=== PATIENT | male | born 1955 | race Caucasian/White ===

== ENCOUNTER 2019-10-27 10:38 | Emergency (ER) | payer OTHER ==
[2019-10-27 11:09] LABS: Absolute Lymphocytes (CBC) 0.8 K/uL (0.7-4.9); Basophils % 0.9 % (0-1.3); Hematocrit 58.5 % (39.6-49.0); Lymphocytes % 5.2 % (15.3-44.8); MPV 9.4 fL (7.6-11.3); RBC Red Blood Cell Count 7.34 M/uL (4.33-5.43)
[2019-10-27] MEDS ORDERED: NA CHLORIDE 0.9% 1,000 ML ONE (11:12)
[2019-10-27] MEDS ORDERED: ONDANSETRON 4 MG/2 ML VIAL ONE (11:12)
[2019-10-27] MEDS ORDERED: MECLIZINE HCL 12.5 MG TAB ONE (11:12)
--- NOTE | 2019-10-27 11:12 | RAD REPORT ---
EXAM DESCRIPTION: CT - Head Brain Wo Cont - 10/27/2019 11:01 am CLINICAL HISTORY: DIZZINESS Headache, drowsiness COMPARISON: No comparisons TECHNIQUE: All CT scans are performed using dose optimization technique as appropriate and may inclu de automated exposure control or mA/KV adjustment according to patient size. FINDINGS: No intracranial hemorrhage, hydrocephalus or extra-axial fluid collection.No areas of brai n edema or evidence of midline shift. Opacification of the right maxillary antrum is seen most compatible with chronic sinusitis. Remainder the paranasal sinuses and mastoids are clear. The calvarium is intact. IMPRESSION: No acute intracranial abnormality.
--- NOTE | 2019-10-27 11:20 | RAD REPORT ---
EXAM DESCRIPTION: RAD - Chest Single View - 10/27/2019 11:11 am CLINICAL HISTORY: Dizziness Chest pain. COMPARISON: No comparisons FINDINGS: Portable technique limits examination quality. The lungs are grossly clear. The heart is normal in size. No displaced fractures. IMPRESSION: No acute intrathoracic process suspected.
[2019-10-27 11:28] LABS: ALT/SGPT 36 U/L (12-78); AST/SGOT 23 U/L (15-37); Albumin 3.5 g/dL (3.4-5.0); Alkaline Phosphatase 96 U/L (45-117); BUN Blood Urea Nitrogen 9 mg/dL (7-18); Bicarbonate 27 mmol/L (21-32); Bilirubin Direct 0.5 mg/dL (0-0.2); Bilirubin Total 2.2 mg/dL (0.2-1.0); Glucose Level 132 mg/dL (74-106); Magnesium 1.8 mg/dL (1.8-2.4); NT PRO-BNP 80 pg/mL (<125); Potassium 3.4 mmol/L (3.5-5.1); Protein, Total 7.6 g/dL (6.4-8.2); Sodium Level 136 mmol/L (136-145); Troponin (Emerg Dept Use Only) < 0.02 ng/mL (0.0-0.045)
[2019-10-27 11:54] LABS: Protime INR 1.18
[2019-10-27 12:15] LABS: Blood Morphology Comment NOT SEEN (NOT SEEN); Urine White Blood Cell Casts OK
[2019-10-27 12:16] LABS: Platelet Estimate ADEQ
--- NOTE | 2019-10-27 12:27 | EDPHYS ---
Physician Documentation [facility] Name: Greg Villeda Age: 64 yrs Sex: Male : 1955 Arrival Date: 10/27/2019 Time: 10:35 Bed 6 Private MD: ED Physician Isaak Ryan HPI: 10/27 10:59 This 64 yrs old Male presents to ER via EMS with complaints of Dizziness. pm1 10:59 The patient presents with dizziness. Onset: The symptoms/episode began/occurred 2 pm1 day(s) ago. Context: just prior to the episode the patient experienced no apparent symptoms. Modifying factors: the symptoms are aggravated by movement of head, changing position. Associated signs and symptoms: Pertinent positives: nausea, sore throat, Pertinent negatives: abdominal pain, blurred vision, chest pain, combativeness, numbness, shortness of breath, tingling. Severity of symptoms: Pain is currently a 0 / 10. Patient's baseline: Neuro: alert and fully oriented, Motor: no deficits, Ambulation: walks without assistance, Speech: normal. The patient has not experienced similar symptoms in the past. When patient moves his head or changes position, he has a sensation of dizziness that he can describe as feeling sea sick. Historical: - Allergies: 10:41 No Known Allergies; bp - Immunization history:: Adult Immunizations Last tetanus immunization: up to date. - Coronavirus screen:: The patient has NOT traveled to [place], [place], or [place] in the past 14 days. The patient has NOT had contact with known/suspected case of Coronavirus? Proceed with normal triage procedures. - Social history:: Smoking status: Patient denies any tobacco usage or history of. - Ebola Screening: : No symptoms or risks identified at this time. ROS: 10:59 Constitutional: Negative for fever, chills, and weight loss, Eyes: Negative for injury, pm1 pain, redness, and discharge, ENT: Negative for injury, pain, and discharge, Neck: Negative for injury, pain, and swelling, Cardiovascular: Negative for chest pain, palpitations, and edema, Respiratory: Negative for shortness of breath, cough, wheezing, and pleuritic chest pain. 10:59 Back: Negative for injury and pain, : Negative for injury, bleeding, discharge, and swelling, MS/Extremity: Negative for injury and deformity, Skin: Negative for injury, rash, and discoloration. 10:59 Abdomen/GI: Positive for nausea, Negative for abdominal pain, vomiting, diarrhea, constipation. 10:59 Neuro: Positive for dizziness, Negative for altered mental status, headache, numbness, tingling, weakness. Exam: 10:59 Constitutional: This is a well developed, well nourished patient who is awake, alert, pm1 and in no acute distress. Head/Face: Normocephalic, atraumatic. Neck: Trachea midline, no thyromegaly or masses palpated, and no cervical lymphadenopathy. Supple, full range of motion without nuchal rigidity, or vertebral point tenderness. No Meningismus. Chest/axilla: Normal chest wall appearance and motion. Nontender with no deformity. No lesions are appreciated. Cardiovascular: Regular rate and rhythm with a normal S1 and S2. No gallops, murmurs, or rubs. Normal PMI, no JVD. No pulse deficits. Respiratory: Lungs have equal breath sounds bilaterally, clear to auscultation and percussion. No rales, rhonchi or wheezes noted. No increased work of breathing, no retractions or nasal flaring. Abdomen/GI: Soft, non-tender, with normal bowel sounds. No distension or tympany. No guarding or rebound. No evidence of tenderness throughout. Back: No spinal tenderness. No costovertebral tenderness. Full range of motion. 10:59 Skin: Warm, dry with normal turgor. Normal color with no rashes, no lesions, and no evidence of cellulitis. MS/ Extremity: Pulses equal, no cyanosis. Neurovascular intact. Full, normal range of motion. 10:59 Eyes: Periorbital structures: appear normal, Pupils: no acute changes, Extraocular movements: intact throughout, Conjunctiva: normal, Corneas: are normal, Lids and lashes: appear normal, Nystagmus: horizontal nystagmus present with looking to the right. 10:59 Neuro: Orientation: is normal, Mentation: is normal, Cerebellar function: is grossly normal, Motor: moves all fours, strength is normal, strength is 5/5 in all extremities, Sensation: is normal, no obvious gross deficits, dizziness reproduced with changing patient position from lying to sitting, and moving head side to side. Resolves in less than 15 seconds with keeping head still. Vital Signs: 10:41 BP 158 / 91; Pulse 50; Resp 17; Pulse Ox 99% ; Weight 72.57 kg; Height 5 ft. 8 in. bp (172.72 cm); 11:38 BP 149 / 93; Pulse 53; Resp 16; Temp 97.5(O); Pulse Ox 95% on R/A; mh5 13:00 BP 137 / 89; Pulse 57; Resp 17; Temp 97.5; Pulse Ox 99% ; bp 10:41 Body Mass Index 24.33 (72.57 kg, 172.72 cm) bp MDM: 10:35 Patient medically screened. [facility] 12:25 Data reviewed: vital signs. Data interpreted: Pulse oximetry: on room air is 95 %. pm1 Interpretation: normal. Counseling: I had a detailed discussion with the patient and/or guardian regarding: the historical points, exam findings, and any diagnostic results supporting the discharge/admit diagnosis, lab results, radiology results, the need for outpatient follow up, to return to the emergency department if symptoms worsen or persist or if there are any questions or concerns that arise at home. 12:25 ED course: Elevated WBC and H\T\H due to patient's polycythemia vera. pm10/27 10:49 Order name: Basic Metabolic Panel; Complete Time: 11:35 pm10/27 10:49 Order name: CBC with Diff; Complete Time: 12:25 pm10/27 10:49 Order name: LFT's; Complete Time: 11:35 pm10/27 10:49 Order name: Magnesium; Complete Time: 11:35 pm10/27 10:49 Order name: NT PRO-BNP; Complete Time: 11:35 pm10/27 10:49 Order name: PT-INR; Complete Time: 12:15 pm10/27 10:49 Order name: CT Head Brain wo Cont; Complete Time: 11:35 pm10/27 10:49 Order name: Troponin (emerg Dept Use Only); Complete Time: 11:35 pm10/27 10:49 Order name: XRAY Chest (1 view); Complete Time: 11:35 pm10/27 10:57 Order name: Strep; Complete Time: 11:35 pm10/27 11:33 Order name: Throat Culture [facility] 10/27 11:34 Order name: CBC Smear Scan; Complete Time: 12:25 EDMS 10/27 10:49 Order name: EKG; Complete Time: 10:50 pm1 10/27 10:49 Order name: Cardiac monitoring; Complete Time: 11:03 pm1 10/27 10:49 Order name: EKG - Nurse/Tech; Complete Time: 11:33 pm1 10/27 10:49 Order name: IV Saline Lock; Complete Time: 11:03 pm10/27 10:49 Order name: Labs collected and sent; Complete Time: 11:03 pm10/27 10:49 Order name: O2 Per Protocol; Complete Time: 10:59 pm10/27 10:49 Order name: O2 Sat Monitoring; Complete Time: 10:59 pm10/27 11:30 Order name: Labs - recollect needed: recollect pt in special tube; Complete Time: 11:44 bd Administered Medications: 11:00 Drug: Zofran 4 mg Route: IVP; Site: left forearm; bp 13:29 Follow up: Response: Nausea is decreased bp 11:00 Drug: NS 0.9% 1000 ml Route: IV; Rate: 1000 ml; Site: left antecubital; bp 13:29 Follow up: IV Status: Completed infusion; IV Intake: 1000ml bp 11:00 Drug: Meclizine 50 mg Route: PO; bp 13:29 Follow up: Response: No adverse reaction; Marked relief of symptoms bp Disposition: 14:41 Co-signature as Attending Physician, Isaak Ryan MD I agree with the assessment and sarbjit plan of care. Disposition: 10/27/19 12:26 Discharged to Home. Impression: Benign paroxysmal vertigo. - Condition is Stable. - Discharge Instructions: Benign Positional Vertigo. - Prescriptions for Meclizine 25 mg Oral Tablet - take 1 tablet by ORAL route every 8 hours As needed; 30 tablet. - Medication Reconciliation Form, Thank You Letter, Antibiotic Education, Prescription Opioid Use form. - Follow up: Emergency Department; When: As needed; Reason: Worsening of condition. Follow up: Private Physician; When: 2 - 3 days; Reason: Recheck today's complaints, Continuance of care, Re-evaluation by your physician. - Problem is new. - Symptoms have improved. Signatures: Dispatcher [employer] [facility] Dirrim, Isaak Salmeron MD MD cha Marinas, Patrick, VOLUNTEER MANAGER VOLUNTEER MANAGER pm1 Cornelius Sorenson, RN RN bp Corrections: (The following items were deleted from the chart) 13:30 12:26 10/27/2019 12:26 Discharged to Home. Impression: Benign paroxysmal vertigo. bp Condition is Stable. Forms are Medication Reconciliation Form, Thank You Letter, Antibiotic Education, Prescription Opioid Use. Follow up: Emergency Department; When: As needed; Reason: Worsening of condition. Follow up: Private Physician; When: 2 - 3 days; Reason: Recheck today's complaints, Continuance of care, Re-evaluation by your physician. Problem is new. Symptoms have improved. pm1
--- NOTE | 2019-10-27 12:27 | ER ---
Nurse's Notes [facility] Name: Greg Villeda Age: 64 yrs Sex: Male : 1955 Arrival Date: 10/27/2019 Time: 10:35 Bed 6 Private MD: Diagnosis: Benign paroxysmal vertigo Presentation: 10/27 10:35 Presenting complaint: EMS states: INCREASING DIZZINESS SINCE SUNDAY. Transition of bp care: patient was not received from another setting of care. Onset of symptoms is unknown. Risk Assessment: Do you want to hurt yourself or someone else? Patient reports no desire to harm self or others. Initial Sepsis Screen: Does the patient meet any 2 criteria? No. Patient's initial sepsis screen is negative. Does the patient have a suspected source of infection? No. Patient's initial sepsis screen is negative. Care prior to arrival: Medication(s) given: zofran 4 mg, IV initiated. 20 GA, in the left antecubital area, Glucose check: 179. 10:35 Method Of Arrival: EMS: [facility] bp 10:35 Acuity: AIDA 3 bp Triage Assessment: 10:45 General: Appears in no apparent distress. comfortable, Behavior is calm, cooperative, bp appropriate for age. Pain: Denies pain. Historical: - Allergies: 10:41 No Known Allergies; bp - Immunization history:: Adult Immunizations Last tetanus immunization: up to date. - Coronavirus screen:: The patient has NOT traveled to [place], [place], or [place] in the past 14 days. The patient has NOT had contact with known/suspected case of Coronavirus? Proceed with normal triage procedures. - Social history:: Smoking status: Patient denies any tobacco usage or history of. - Ebola Screening: : No symptoms or risks identified at this time. Screenin:03 Abuse screen: Denies threats or abuse. Denies injuries from another. Nutritional bp screening: No deficits noted. Tuberculosis screening: No symptoms or risk factors identified. Fall Risk None identified. Assessment: 11:03 Reassessment: PT RETURNED FROM CT. bp 12:00 Reassessment: ALL CURRENT ORDERS COMPLETED, IVF INFUSING. PT STATING IMPROVEMENT OF S/S.bp 13:26 Reassessment: PT D/C HOME AMBULATORY WITH FAMILY, DX WITH VERTIGO. bp Vital Signs: 10:41 BP 158 / 91; Pulse 50; Resp 17; Pulse Ox 99% ; Weight 72.57 kg; Height 5 ft. 8 in. bp (172.72 cm); 11:38 BP 149 / 93; Pulse 53; Resp 16; Temp 97.5(O); Pulse Ox 95% on R/A; mh5 13:00 BP 137 / 89; Pulse 57; Resp 17; Temp 97.5; Pulse Ox 99% ; bp 10:41 Body Mass Index 24.33 (72.57 kg, 172.72 cm) bp ED Course: 10:35 Patient arrived in ED. bp 10:35 Isaak Ryan MD is Attending Physician. sarbjit 10:35 Maintain EMS IV. Dressing intact. Good blood return noted. Site clean \T\ dry. Gauge \T\ bp site: 20 G LEFT AC. 10:38 Triage completed. bp 10:40 Koffi Smith NP is PHCP. pm1 10:44 EKG completed in triage. Results shown to MD. bp 10:45 Arm band placed on. bp 10:59 Cornelius Sorenson, RN is Primary Nurse. bp 11:00 CT Head Brain wo Cont In Process Unspecified. EDMS 11:03 Patient has correct armband on for positive identification. Bed in low position. Call bp light in reach. Side rails up X2. 11:11 XRAY Chest (1 view) In Process Unspecified. EDMS 13:27 No provider procedures requiring assistance completed. IV discontinued, intact, bp bleeding controlled, No redness/swelling at site. Pressure dressing applied. Administered Medications: 11:00 Drug: Zofran 4 mg Route: IVP; Site: left forearm; bp 13:29 Follow up: Response: Nausea is decreased bp 11:00 Drug: NS 0.9% 1000 ml Route: IV; Rate: 1000 ml; Site: left antecubital; bp 13:29 Follow up: IV Status: Completed infusion; IV Intake: 1000ml bp 11:00 Drug: Meclizine 50 mg Route: PO; bp 13:29 Follow up: Response: No adverse reaction; Marked relief of symptoms bp Intake: 13:29 IV: 1000ml; Total: 1000ml. bp Outcome: 12:26 Discharge ordered by MD. pm1 13:27 Discharged to home ambulatory, with family. bp 13:27 Condition: stable 13:27 Discharge instructions given to patient, Instructed on discharge instructions, follow up and referral plans. medication usage, Demonstrated understanding of instructions, follow-up care, medications, Prescriptions given X 1. 13:30 Patient left the ED. bp Signatures: Dispatcher [employer] EDIsaak Mehta MD MD cha Marinas, Patrick, YOUTH DIRECTOR YOUTH DIRECTOR 1 Lynette Fernandes 5 Cornelius Sorenson, RN RN bp
[2019-10-27 14:18] VITALS: TEMP 97.5
[2019-10-27 14:19] VITALS: BP 137/89; O2SAT 99
--- NOTE | 2019-10-27 15:20 | EKG ---
Test Date: 2019-10-27 Test Time: 11:22:11 Pet House Sitter: AYDE MEASUREMENT RESULTS: Intervals: Rate: 51 LA: 160 QRSD: 98 QT: 462 QTc: 425 [place]: P: -9 LA: 160 QRS: -6 T: 37 INTERPRETIVE STATEMENTS: Sinus bradycardia Septal infarct, age undetermined Abnormal ECG No previous ECG available for comparison Electronically Signed On 10-27-19 15:19:05 PALEONTOLOGICAL HELPER by Jamie Kong
== END 2019-10-27 13:30 | disposition home or self-care (01) ==
LOC: ER 10:38
DX: H81.10 Benign paroxysmal vertigo, unspecified ear (principal)
CPT/HCPCS: 96361; 93005; 87070; 85025; 80048; 36415; 83735; 85610; 80076; 87081; 84484; 83880; 70450; 71045; 96374; 99284; J8597; J7030; J2405